=== PATIENT | female | born 1990 | race Two or more races ===

== ENCOUNTER 2025-02-07 10:00 | Outpatient (CLI) | payer MEDICAID ==
[2025-02-07 10:26] LABS: Hematocrit 35.6 % (36.0-46.0); Hemoglobin 11.7 g/dL (12.2-16.2); Mean Corpuscular Hemoglobin 29.2 pg (28.0-32.0); Mean Corpuscular Volume 89.3 fL (80.0-100.0); Nucleated Red Blood Cells % 0.1 %
[2025-02-07 10:55] LABS: Alanine Aminotransferase 11 U/L (7-40); Albumin 4.3 g/dL (3.2-4.8); Alkaline Phosphatase 105 U/L (46-116); Anion Gap 9 (5-15); BUN/Creatinine Ratio 12.0 (10.0-20.0); Beta HCG, Quantitative 0.6 mIU/mL (1.5-4.2); Bilirubin, Total 0.3 mg/dL (0.2-1.0); Blood Urea Nitrogen 9 mg/dL (9-23); Calcium 9.4 mg/dL (8.7-10.4); Carbon Dioxide 28 mmol/L (20-31); Chloride 103 mmol/L (98-107); Glucose 75 mg/dL (74-106); Potassium 3.9 mmol/L (3.5-5.1); Sodium 140 mmol/L (136-145); Total Protein 7.9 g/dL (5.7-8.2)
[2025-02-07 10:58] LABS: Thyroid Stimulating Hormone 0.84 uIU/mL (0.55-4.78)
[2025-02-07 11:05] LABS: Follicle Stimulating Hormone 5.29 IU/L (SEE BELOW)
[2025-02-07 11:06] LABS: Free T4 (Free Thyroxine) 1.15 ng/dL (0.89-1.76)
== END 2025-02-07 17:00 | disposition home or self-care (01) ==
LOC: LAB 10:00
DX: N93.9 Abnormal uterine and vaginal bleeding, unspecified (principal)
CPT/HCPCS: 36415; 80053; 82626; 82670; 83001; 83002; 83036; 83525; 84146; 84270; 84402; 84403; 84439; 84443; 84702; 85025